=== PATIENT | male | born 1985 | race Caucasian/White ===

== ENCOUNTER 2019-07-26 16:44 | Inpatient (IN) | payer MEDICAID, OTHER ==
[~2019-07-26] VITALS: Ht 172.7 cm; Wt 79.6 kg
[2019-07-26] MEDS ORDERED: SERT-138 PO (17:12)
[2019-07-26] MEDS ORDERED: OMEP-218 PO ×2 (17:12→22:50)
[2019-07-26] MEDS ORDERED: SUBO8MIS SL ×2 (17:12→22:50)
[2019-07-26] MEDS ORDERED: LISI10TA15 PO ×2 (17:22→22:50)
[2019-07-26 18:02] LABS: HEMATOCRIT 47.5 % (42.0-52.0); HEMOGLOBIN 15.8 g/dl (13.5-17.5); MEAN CORPUSCULAR HEMOGLOBIN 31.1 pg (27.0-33.0); MEAN CORPUSCULAR HGB CONC 33.3 g/dl (32.0-36.5); MEAN CORPUSCULAR VOLUME 93.5 fl (80.0-96.0); PLATELET COUNT, AUTOMATED 274 10^3/uL (150-450); RED BLOOD COUNT 5.08 10^6/uL (4.30-6.10); WHITE BLOOD COUNT 10.8 10^3/uL (4.0-10.0)
[2019-07-26 18:27] LABS: AMPHETAMINES LEVEL URINE NEGATIVE (NEGATIVE); BARBITURATES URINE NEGATIVE (NEGATIVE); BENZODIAZEPINES URINE NEGATIVE (NEGATIVE); CANNABINOIDS URINE POSITIVE (NEGATIVE); COCAINE METABOLITE URINE NEGATIVE (NEGATIVE); METHADONE URINE NEGATIVE (NEGATIVE); OPIATES URINE NEGATIVE (NEGATIVE); PHENCYCLIDINE URINE NEGATIVE (NEGATIVE)
[2019-07-26 18:36] LABS: ACETAMINOPHEN LEVEL < 2.0 UG/ML (10.0-30.0); ALBUMIN 3.8 GM/DL (3.2-5.2); ALT/SGPT 38 U/L (12-78); BILIRUBIN,DIRECT < 0.1 MG/DL (0.0-0.2); BILIRUBIN,TOTAL 0.2 MG/DL (0.2-1.0); BLOOD UREA NITROGEN 9 MG/DL (7-18); CALCIUM LEVEL 9.2 MG/DL (8.5-10.1); CARBON DIOXIDE LEVEL 31 MEQ/L (21-32); CHLORIDE LEVEL 106 MEQ/L (98-107); CREATININE FOR GFR 0.96 MG/DL (0.70-1.30); ETHYL ALCOHOL (ETHANOL) < 0.003 % (0.000-0.010); GLOMERULAR FILTRATION RATE > 60.0 (>60); GLUCOSE, FASTING 103 MG/DL (70-100); POTASSIUM SERUM 4.8 MEQ/L (3.5-5.1); SALICYLATE LEVEL 2.7 MG/DL (5.0-30.0); SODIUM LEVEL 141 MEQ/L (136-145); THYROID STIMULATING HORMONE 0.426 uIU/ML (0.358-3.740); TOTAL PROTEIN 7.5 GM/DL (6.4-8.2)
[2019-07-26] MEDS ORDERED: MAALOX 30 ML SUSP *UDC PO PRN (22:00)
[2019-07-26] MEDS ORDERED: ACETAMINOPHEN TAB 650MG DOSE (2X325MG) PO PRN (22:00)
[2019-07-26] MEDS ORDERED: MOM 30ML SUSPENSION UDC PO PRN (22:00)
[2019-07-26] MEDS ORDERED: NICOTINE 21MG/24HR 1 EA TRANSDERMAL TD STA (22:26)
[2019-07-26] MEDS ORDERED: VENL75CA47 PO (22:50)
[2019-07-26] MEDS ORDERED: NARC1SPR (22:54)
[2019-07-26] MEDS ORDERED: ALEV220T22 PO (22:54)
[2019-07-26 23:19] VITALS: BP 135/82
[2019-07-26] MEDS: traZODone 50 MG TAB PO PRN (23:58)
[2019-07-27 06:52] VITALS: BP 124/84
--- NOTE | 2019-07-27 09:17 | MHHPEPDOC ---
[facility] History & Physical History and Physical DATE OF ADMISSION: Jul 26, 2019 at 22:00 New Patient Maxwell Castellanos MRN: N/A Date of : N/A Date of Service: 07/27/2019 Chief Complaint "I had a moment." History of Present Illness Patient is a 34-year-old man with a history of PTSD who presents after reportedly getting suicidal thoughts for short period that were primarily hopelessness. When further asked and described, the patient reports that he was under much stress with multiple financial stressors and his having addiction. When I met with the patient, he reported that having good sleep and being restarted on his venlafaxine that he had felt was very helpful, he was feeling much improved. The patient states that he had had multiple stressors and that being from them had helped him greatly. He reports that his initial depressed mood, irritability and insomnia that were present have resolved. The patient reports having a history of PTSD with combat and subsequent avoidance, hypervigilance and negative cognition about the future. He reports he has recently moved up from [place] and that he has been without his medications. He has been attempting to get medications through [facility] and has been in the Suboxone outpatient program. Review Of Systems Depression: As above. Anxiety: Trauma related stressors and situational increased anxiety. Radha: The patient denies any episodes of euphoria/dysphoria associated with decreased need for sleep, hedonism, talkatively or impulsivity lasting longer than 5 days. Psychotic: The patient denies any experiences of auditory or visual hallucinations. They deny any episodes of paranoia or delusional thinking in the past Trauma: As above. Borderline: The patient screens negative for borderline personality at this junction. Past Psychiatric History The patient reports having diagnosis of PTSD, currently on venlafaxine, previously on sertraline, has had outpatient in [place], reports having 1 admission in the past. Denies any suicidal thoughts. Allergies Please see below. Family Psychiatric History The patient denies any history of mental health diagnoses, addictions or suicide in the family. Social History The patient lives in the local area. He is to his spouse, has 2 children, subsists on [employer] disability for PTSD, has had a DUI in the past, grew up in a family with an estranged relationship to his father who he has no contact with. He has good relationship with mother, served in the [employer] for 4 years and was honorably discharged. Substance Abuse History The patient reports having an opioid dependence history, tobacco use and currently follows at outpatient addiction in [place]. Medical History Has a history of hypertension. Mental Status Examination General: Well dressed with good hygiene Speech: Spontaneous and fluid Thought processes: Linear and logical MSK: Smooth and coordinated gait, no signs of tremors or involuntary orofacial movements Thought content: Future orientated Abstract reasoning, and computation: Intact Description of associations: Intact Description of abnormal or psychotic thoughts: Denies any suicidal or homicidal ideation. Denies any auditory or visual hallucinations. Does not appear to be r esponding to internal stimuli. Does not appear to be endorsing any bizarre or paranoid ideation. Judgment: fair Insight: fair Orientation: Alert and orientated 3 Cognition: Grossly normal Recent and remote memory: Intact Attention span and concentration: Intact Fund of knowledge: Adequate Mood: "okay" Affect: Euthymic with a full range Diagnoses Adjustment disorder, mild. PTSD, chronic. Opioid use disorder, on maintenance treatment. Tobacco use disorder, severe. Assessment and Plan PTSD: We'll restart home medications. Opioid use disorder: Restart home medications. Disposition Discharge tomorrow. Does not meet involuntary criteria for extension of his admission past 48 hours. Problem List 1. Risk for suicide. 2. Depression. 3. Ineffective coping. Initial Treatment Plan 1. Patient was admitted on a 9.39 legal status. 2. Complete history was obtained. 3. With patients permission, family will be contacted and database will be expanded. 4. Patients medication regimen will be reviewed and changed accordingly. 5. Patient will be provided with protected environment. 6. Patient will be treated with individual, group, and milieu therapies. 7. Patient will receive supportive psych-education. 8. Discharge planning will commence immediately. 9. Outpatient follow-up treatment will be strongly recommended. 10. The initial treatment plan will focus initially on: Estimated Length Of Stay 2 days. Time Spent 70 minutes. Vital Signs Vital Signs Date Time Temp Pulse Resp B/P (MAP) Pulse Ox O2 Delivery O2 Flow Rate FiO2 07/27/19 06:52 98.5 77 12 124/84 (97) Room Air 07/26/19 18:48 100 Laboratory Data 24H Labs Laboratory Tests 2 07/26/19 17:41: Nucleated Red Blood Cells % (auto) 0.0, Anion Gap 4L, Glomerular Filtration Rate > 60.0, Calcium Level 9.2, Total Bilirubin 0.2, Direct Bilirubin < 0.1, Aspartate Amino Transf (AST/SGOT) 20, Alanine Aminotransferase (ALT/SGPT) 38, Alkaline Phosphatase 85, Total Protein 7.5, Albumin 3.8, Albumin/Globulin Ratio 1.03, Thyroid Stimulating Hormone (TSH) 0.426, Salicylates Level 2.7L, Urine O piates Screen NEGATIVE, Urine Methadone Screen NEGATIVE, Acetaminophen Level < 2.0L, Urine Barbiturates Screen NEGATIVE, Urine Phencyclidine Screen NEGATIVE, Urine Amphetamines Screen NEGATIVE, Urine Benzodiazepines Screen NEGATIVE, Urine Cocaine Metabolite Screen NEGATIVE, Urine Cannabinoids Screen POSITIVEH, Ethyl Alcohol Level < 0.003 CBC/BMP Laboratory Tests 07/26/19 17:41 Medications Scheduled Buprenorphine HCl/Naloxone HCl (Suboxone 8 mg-2 mg Sl Film) 1 Each Film, 1 STRIP SL BID for . Lisinopril/Hydrochlorothiazide (Lisinopril-Hctz 10-12.5 mg Tab) 1 Each Tablet, 1 TAB PO DAILY for . Omeprazole (Omeprazole) 20 Mg Capsule.dr, 20 MG PO DAILY, (Reported) Trazodone HCl (Trazodone HCl) 50 Mg Tablet, 1 TAB PO QPM for sleep Venlafaxine HCl (Venlafaxine HCl ER) 75 Mg Cap.er.24h, 75 MG PO DAILY for mood Scheduled PRN Naloxone HCl (Narcan) 4 Mg [place], 4 MG NA ASDIRECTED PRN for OVERDOSE, (Reporte d) Naproxen Sodium (Aleve) 220 Mg Tablet, 440 MG PO BID PRN for PAIN, (Reported) Allergies Coded Allergies: No Known Allergies (Verified Allergy, Unknown, 07/26/19) TY MERINO DO Jul 27, 2019 09:17
[2019-07-27] MEDS: NICOTINE 21MG/24HR 1 EA TRANSDERMAL TD SCH (10:21)
[2019-07-27] MEDS: VENLAFAXINE **XR** 75MG CAPSULE PO SCH (10:21)
[2019-07-27] MEDS: BUPRENORPHINE/NALOXONE 8-2MG SUBLINGUAL TABLET(SUBOXONE) SL SCH ×2 (15:20→20:39)
[2019-07-27 17:48] VITALS: BP 158/84
[2019-07-27 18:00] VITALS: BP 140/100
--- NOTE | 2019-07-27 18:13 | HPE ---
DATE OF ADMISSION: 07/26/2019 The patient is admitted to the inpatient mental health unit due to depression. HISTORY OF PRESENT ILLNESS: This a 34-year-old male with history of polysubstance abuse, undergoing Suboxone detoxification, active tobacco use. He denies any medical complaints aside from withdrawal symptoms which is occasional nausea, generalized malaise and aches, and occasional chills. No fever, dysuria, urgency, frequency, chest pain, pressure or tightness, shortness of breath, palpitations, lightheadedness, dizziness, upper or lower extremity weakness, gait ataxia, changes in vision, changes in appetite, insomnia, hypersomnia. PAST MEDICAL HISTORY: Suboxone detoxification, osteoarthritis. PAST SURGICAL HISTORY: Left knee arthroscopy. ALLERGIES: No known drug allergies. HOSPITAL MEDICATIONS: - acetaminophen 650 as needed for headache - Mylanta 30 mL every four hours as needed for heartburn - Suboxone one tablet sublingually twice a day - flu shot - milk of magnesia 30 mL daily as needed for constipation - nicotine patch 21 mg daily - trazodone 50 mg at bedtime as needed for insomnia - Effexor 75 mg daily SOCIAL HISTORY: The patient smokes a pack a day since age of 16. No alcohol use. Recreational drug use with opiates. 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 FAMILY HISTORY: Father and mother alive, unknown medical problems. One sister and one brother alive and well. PHYSICAL EXAMINATION: Temperature 98.5, pulse 77, respiratory rate 21, blood pressure 124/84, 100% on room air. GENERAL: Awake, alert, oriented to person, place and time. Anicteric sclerae. No jaundice. No icterus. Moist mucous membranes. Lungs are clear to auscultation. No wheezing, rales, or rhonchi. HEART: S1, S2, sinus rhythm. Abdomen is soft, nontender, nondistended. EXTREMITIES: No clubbing, cyanosis, or any pitting edema. LABORATORY DATA: White count 10, hemoglobin 15, hematocrit 47, platelet count 274. Sodium 141, potassium 4.8, chloride 106, bicarbonate 31, BUN 9, creatinine 0.96, glucose 103, calcium 9.2, total bilirubin 0.2, direct bilirubin less than 0.1, AST 20, ALT 38, alkaline phosphatase 85, total protein 7.5, albumin 3.8, TSH 0.426. Toxicology screen positive for cannabinoids. ASSESSMENT AND PLAN: This is a 34-year-old male with history of polysubstance abuse, positive marijuana, recreational drug use with opiates, active smoking, admitted to the inpatient mental health unit, currently on Suboxone detoxification. IMPRESSION: 1. Depression, managed by psychiatrist. Continue all recommended medications. 2. History of osteoarthritis with left knee arthroscopy. No acute complaints. 3. Diet. Regular diet. 4. Deep vein thrombosis (DVT) prophylaxis. Encourage ambulation. MTDD
[2019-07-27] MEDS: traZODone 50 MG TAB PO PRN (21:55)
[2019-07-28 06:22] VITALS: BP 119/65
[2019-07-28] MEDS: NICOTINE 21MG/24HR 1 EA TRANSDERMAL TD SCH (08:09)
[2019-07-28] MEDS: VENLAFAXINE **XR** 75MG CAPSULE PO SCH (08:09)
[2019-07-28] MEDS: BUPRENORPHINE/NALOXONE 8-2MG SUBLINGUAL TABLET(SUBOXONE) SL SCH (08:09)
[2019-07-28] MEDS ORDERED: INFLUENZA QUADRIVALENT PF VACCINE 0.5ML SYRINGE (90686) IM ONE (09:00)
[2019-07-28] MEDS ORDERED: LISI10TA15 PO (09:31)
[2019-07-28] MEDS ORDERED: VENL75CA47 PO (09:31)
[2019-07-28] MEDS ORDERED: SUBO8MIS SL (09:31)
--- NOTE | 2019-07-28 10:46 | MHDSPDOC ---
[facility] Discharge Summary Discharge Summary DATE OF ADMISSION: Jul 26, 2019 at 22:00 DATE OF DISCHARGE: 07/28/19 Discharge Maxwell Castellanos MRN: N/A Date of : N/A Date of Service: 07/28/2019 Diagnoses Adjustment disorder, mild. PTSD, chronic. Opioid use disorder, on maintenance treatment. Tobacco use disorder, severe. History of Present Illness Patient is a 34-year-old man with a history of PTSD who presents after reportedly getting suicidal thoughts for short period that were primarily hopelessness. When further asked and described, the patient reports that he was under much stress with multiple financial stressors and his having addiction. When I met with the patient, he reported that having good sleep and being restarted on his venlafaxine that he had felt was very helpful, he was feeling much improved. The patient states that he had had multiple stressors and that being from them had helped him greatly. He reports that his initial depressed mood, irritability and insomnia that were present have resolved. The patient reports having a history of PTSD with combat and subsequent avoidance, hypervigilance and negative cognition about the future. He reports he has recently moved up from [place] and that he has been without his medications. He has been attempting to get medications through [facility] and has been in the Suboxone outpatient program. Consultants Involved Hospitalist/PCP screening Treatment and Progress On The Unit Patient was admitted to the inpatient unit, restarted on his home medications with positive results. There was primarily adjustment reaction as his symptoms of stress induced insomnia, low mood and hopelessness have resolved, his suicidal ideation resolved shortly after his arrival to the hospital. The patient did well without much intervention. The patient resolved and requested discharge. At 48 hours, he did not meet involuntary criteria for extension of his admission in my clinical judgment as he is denying suicidal or homicidal ideation with a normal mental status, good insight, cooperated well with his discharge and was future orientated. He was not significantly impaired by his PTSD so much so that he could be further held involuntarily and declined further voluntary admission and thus was discharged in good leoncio with supplies of his medications until he can find a local provider in order to continue them. Discharge Assessment A 34-year-old man with a history of PTSD who likely presents in an adjustment reaction, well known to happen in individuals with PTSD, stress levels can rise quickly and the individuals become hopeless, insomniac and depressed, however, once they are extricated from these situations much as this patient was they resolve quickly. He was restarted on his home medications with good results. Mental Status Examination General: Well dressed with good hygiene Speech: Spontaneous and fluid Thought processes: Linear and logical MSK: Smooth and coordinated gait, no signs of tremors or involuntary orofacial movements Thought content: Future orientated Abstract reasoning, and computation: Intact Description of associations: Intact Description of abnormal or psychotic thoughts: Denies any suicidal or homicidal ideation. Denies any auditory or visual hallucinations. Does not appear to be responding to internal stimuli. Does not appear to be endorsing any bizarre or paranoid ideation. Judgment: fair Insight: fair Orientation: Alert and orientated 3 Cognition: Grossly normal Recent and remote memory: Intact Attention span and concentration: Intact Fund of knowledge: Adequate Mood: "okay" Affect: Euthymic with a full range Follow Up The social work team worked during the predischarge meeting in order to evaluate for further issues of lethality address them fully before discharge. They worked on safety planning with the patient's family members in order to ensure that the patient will have a safe and effective discharge. Time Spent The amount of time spent in the coordination of care for this patient was approximately 60 minutes. Vital Signs/I&Os Vital Signs Date Time Temp Pulse Resp B/P (MAP) Pulse Ox O2 Delivery O2 Flow Rate FiO2 07/28/19 06:22 98.2 65 18 119/65 (83) 07/27/19 06:52 Room Air 07/26/19 18:48 100 Medications Scheduled Buprenorphine HCl/Naloxone HCl (Suboxone 8 mg-2 mg Sl Film) 1 Each Film, 1 STRIP SL BID for . for 3 Days, #6 Lisinopril/Hydrochlorothiazide (Lisinopril-Hctz 10-12.5 mg Tab) 1 Each Tablet, 1 TAB PO DAILY for . for 7 Days, #7 Omeprazole (Omeprazole) 20 Mg Capsule.dr, 20 MG PO DAILY, (Reported) Trazodone HCl (Trazodone HCl) 50 Mg Tablet, 1 TAB PO QPM for sleep for 7 Days, #7 Venlafaxine HCl (Venlafaxine HCl ER) 75 Mg Cap.er.24h, 75 MG PO DAILY for mood for 7 Days, #7 Scheduled PRN Naloxone HCl (Narcan) 4 Mg [place], 4 MG NA ASDIRECTED PRN for OVERDOSE, (Reported) Naproxen Sodium (Aleve) 220 Mg Tablet, 440 MG PO BID PRN for PAIN, (Reported) Allergies Coded Allergies: No Known Allergies (Verified Allergy, Unknown, 07/26/19) TY MERINO DO Jul 28, 2019 10:46
[2019-07-28] MEDS ORDERED: TRAZ-252 PO (13:22)
== END 2019-07-28 11:00 | disposition home or self-care (01) | DRG 755 ==
LOC: M ED 16:44 → M ED INP 22:00 → M PSY 23:14
PROVIDERS: ADMIT Psychiatry & Neurology Psychiatry; ATTEND Psychiatry & Neurology Addiction Medicine
DX: F43.20 Adjustment disorder, unspecified (principal); F43.10 Post-traumatic stress disorder, unspecified; I10 Essential (primary) hypertension; F11.20 Opioid dependence, uncomplicated; F17.210 Nicotine dependence, cigarettes, uncomplicated; M19.90 Unspecified osteoarthritis, unspecified site; F32.9 Major depressive disorder, single episode, unspecified; Z79.899 Other long term (current) drug therapy; Z96.652 Presence of left artificial knee joint; Z91.82 Personal history of military deployment; Z63.0 Problems in relationship with spouse or partner

== ENCOUNTER 2019-08-26 13:13 | Emergency (ER) | payer MEDICAID ==
[~2019-08-26] VITALS: Ht 175.3 cm; Wt 81.8 kg
[~2019-08-26 13:13] MED LIST: ALEV220T22 PO; LISI10TA15 PO; NARC1SPR; OMEP-218 PO; SERT-138 PO; SUBO8MIS SL; TRAZ-252 PO; VENL75CA47 PO
[2019-08-26 14:15] LABS: MEAN CORPUSCULAR HEMOGLOBIN 30.4 pg (27.0-33.0); MEAN CORPUSCULAR HGB CONC 33.3 g/dl (32.0-36.5); MEAN CORPUSCULAR VOLUME 91.4 fl (80.0-96.0); PLATELET COUNT, AUTOMATED 271 10^3/uL (150-450); RED BLOOD COUNT 6.02 10^6/uL (4.30-6.10)
[2019-08-26 14:16] LABS: HEMOGLOBIN 18.3 g/dl (13.5-17.5)
[2019-08-26 14:40] LABS: AMPHETAMINES LEVEL URINE POSITIVE (NEGATIVE); BARBITURATES URINE NEGATIVE (NEGATIVE); BENZODIAZEPINES URINE NEGATIVE (NEGATIVE); CANNABINOIDS URINE POSITIVE (NEGATIVE); COCAINE METABOLITE URINE NEGATIVE (NEGATIVE); METHADONE URINE NEGATIVE (NEGATIVE); OPIATES URINE NEGATIVE (NEGATIVE); PHENCYCLIDINE URINE NEGATIVE (NEGATIVE)
[2019-08-26 14:46] LABS: ACETAMINOPHEN LEVEL < 2.0 UG/ML (10.0-30.0); ALBUMIN 4.1 GM/DL (3.2-5.2); ALT/SGPT 29 U/L (12-78); BILIRUBIN,DIRECT < 0.1 MG/DL (0.0-0.2); BILIRUBIN,TOTAL 0.3 MG/DL (0.2-1.0); BLOOD UREA NITROGEN 7 MG/DL (7-18); CALCIUM LEVEL 9.1 MG/DL (8.5-10.1); CARBON DIOXIDE LEVEL 26 MEQ/L (21-32); CHLORIDE LEVEL 107 MEQ/L (98-107); CREATININE FOR GFR 0.97 MG/DL (0.70-1.30); ETHYL ALCOHOL (ETHANOL) < 0.003 % (0.000-0.010); GLOMERULAR FILTRATION RATE > 60.0 (>60); GLUCOSE, FASTING 93 MG/DL (70-100); POTASSIUM SERUM 4.2 MEQ/L (3.5-5.1); SALICYLATE LEVEL < 1.7 MG/DL (5.0-30.0); SODIUM LEVEL 140 MEQ/L (136-145); THYROID STIMULATING HORMONE 0.903 uIU/ML (0.358-3.740); TOTAL PROTEIN 7.9 GM/DL (6.4-8.2)
[2019-08-26] MEDS ORDERED: ONDANSETRON 4 MG ORAL DISINTEGRATING TAB (Q0162 PER 1MG) PO ONE (16:30)
--- NOTE | 2019-08-26 19:08 | ECGEPIP ---
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
[2019-08-26] MEDS ORDERED: METAL LOCK LOOP XX ONE (19:25)
[2019-08-26] MEDS ORDERED: traZODone 50 MG TAB PO ONE (20:15)
[2019-08-26 21:32] VITALS: BP 140/74
== END 2019-08-26 21:34 ==
LOC: M ED 13:13
DX: R45.851 Suicidal ideations (principal); F43.10 Post-traumatic stress disorder, unspecified; F43.20 Adjustment disorder, unspecified; M19.90 Unspecified osteoarthritis, unspecified site; F11.20 Opioid dependence, uncomplicated; Z79.899 Other long term (current) drug therapy; F17.210 Nicotine dependence, cigarettes, uncomplicated
CPT/HCPCS: 36415; 80048; 80076; 80307; 84443; 85027; 93005; 99285; G0480; Q0162

== ENCOUNTER 2021-03-02 14:09 | Emergency (ER) | payer OTHER ==
[~2021-03-02] VITALS: Ht 172.7 cm; Wt 72.7 kg
--- NOTE | 2021-03-02 16:53 | REP ---
INDICATION: pain COMPARISON: None. TECHNIQUE: Three limited views of the right shoulder. FINDINGS: No acute fracture or dislocation. The acromioclavicular and glenohumeral joints are intact. No periarticular calcifications or degenerative changes are appreciated. Sub acromial space is normal. Surrounding soft tissues are unremarkable. IMPRESSION: No obvious acute fracture or dislocation. No obvious degenerative changes. <Electronically signed by Deondre Nuñez > 03/02/21 0133
--- NOTE | 2021-03-02 16:54 | REP ---
INDICATION: pain COMPARISON: None. TECHNIQUE: AP, lateral, bilateral oblique views right foot. FINDINGS: The osseous structures and joint spaces are intact and normal. There is no evidence for acute fracture or dislocation. Surrounding soft tissues are unremarkable. No subcutaneous emphysema or radiodense foreign body. IMPRESSION: Age-appropriate right foot radiographs. No acute fracture or dislocation. <Electronically signed by Deondre Nuñez > 03/02/21 [id number]
[2021-03-02] MEDS ORDERED: ACETAMINOPHEN 500 MG TAB PO ONE (18:55)
[2021-03-02 20:12] LABS: BLOOD UREA NITROGEN 24 MG/DL (7-18); CARBON DIOXIDE LEVEL 25 MEQ/L (21-32); CHLORIDE LEVEL 91 MEQ/L (98-107); CREATININE FOR GFR 0.89 MG/DL (0.70-1.30); GLOMERULAR FILTRATION RATE > 60.0 (>60); GLUCOSE, FASTING 109 MG/DL (70-100); POTASSIUM SERUM 3.7 MEQ/L (3.5-5.1); SODIUM LEVEL 128 MEQ/L (136-145)
[2021-03-02] MEDS ORDERED: MORPHINE 2 MG/ML 1ML VIAL (J2270) IM ONE (20:20)
[2021-03-02] MEDS ORDERED: NS 1,000 ML IV ONE (20:20)
[2021-03-02] MEDS ORDERED: VANCOMYCIN HCL 1,500 MG in NS 250 ML IV ONE (20:20)
[2021-03-02 20:25] LABS: HEMATOCRIT 46.8 % (42.0-52.0); HEMOGLOBIN 15.7 g/dl (13.5-17.5); MEAN CORPUSCULAR HEMOGLOBIN 28.6 pg (27.0-33.0); MEAN CORPUSCULAR HGB CONC 33.5 g/dl (32.0-36.5); MEAN CORPUSCULAR VOLUME 85.4 fl (80.0-96.0); RED BLOOD COUNT 5.48 10^6/uL (4.30-6.10); WHITE BLOOD COUNT 16.8 10^3/uL (4.0-10.0)
[2021-03-02] MEDS ORDERED: VANCOMYCIN HCL 750 MG, VIAL MATE ADAPTER 1 EACH in NS 250 ML IV ONE ×2 (20:30→21:30)
[2021-03-02 20:32] LABS: LYMPHOCYTES 10 % (16-44); MONOCYTES 4 % (0-5); NEUTROPHILS 83 % (28-66); PLATELET CLUMPS LARGE AMT; PLATELET ESTIMATE INVALID (NORMAL)
--- NOTE | 2021-03-02 21:21 | ECGEPIP ---
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
[2021-03-02 22:15] LABS: RSV AMPLIFICATION NEGATIVE (NEGATIVE)
--- NOTE | 2021-03-02 23:16 | REPVR ---
PROCEDURE INFORMATION: Exam: XR Chest Exam date and time: 03/02/2021 9:58 PM Age: 35 years old Clinical indication: Fever; Additional info: Chest pain, fever, lactic acidosis TECHNIQUE: Imaging protocol: XR of the chest. Views: 1 view. COMPARISON: CR Shoulder, complete 03/02/2021 4:13 PM FINDINGS: Lungs: There is decreased inflation of the lungs. No focal infiltrates. Pleural spaces: Unremarkable. No pleural effusion. No pneumothorax. Heart/Mediastinum: Unremarkable. No cardiomegaly. Bones/joints: Unremarkable. IMPRESSION: Negative poor inspiratory chest. Electronically signed by: Sergei Mishra On 03/02/2021 23:15:50 PM
[2021-03-03] MEDS ORDERED: ACETAMINOPHEN 325 MG TAB PO ONE (03:15)
--- NOTE | 2021-03-03 04:32 | REPVR ---
PROCEDURE INFORMATION: Exam: MR Lumbar Spine Without Contrast Exam date and time: 03/03/2021 2:15 AM Age: 35 years old Clinical indication: Low back pain and other: Lt hip pain; Patient HX: HX of iv drug use, PT states pain everywhere most concentrated in the left lower back area; Additional info: R/O epidural abscess TECHNIQUE: Imaging protocol: Multiplanar magnetic resonance images of the lumbar spine without intravenous contrast. COMPARISON: No relevant prior studies available. FINDINGS: Limitations: There is motion artifact. Vertebrae: There is normal alignment of the visualized spine. Spinal epidural space: No epidural collections are identified. Spinal cord: The conus medullaris terminates at the L1 level. The distal cord appears unremarkable. T12-L1: Imaged on the sagittal images only. Unremarkable. L1-L2: There is no disc bulge or herniation. The facet joints appear normal. No central or foraminal narrowing. L2-L3: There is no disc bulge or herniation. The facet joints appear normal. No central or foraminal narrowing. L3-L4: There is no disc bulge or herniation. There is mild hypertrophy of the facet joints. No central or foraminal narrowing. L4-L5: The disc is desiccated and narrowed. There is diffuse disc bulge and a central to left paracentral disc protrusion associated with peripheral high signal in the disc, indicating an annular tear. There is mild hypertrophy of the ligamentum flavum and of the facet joints. There is moderate central canal stenosis and mild bilateral neural foraminal narrowing. L5-S1: The disc is desiccated and narrowed. There is a small diffuse bulge of the disc and a small, broad-based left subarticular to foraminal disc protrusion, associated with peripheral high signal in the disc, indicating an annular tear. The facet joints appear unremarkable. There is mild central canal stenosis. The right neural foramen is patent. There is moderate left neural foraminal narrowing. Soft tissues: There is hyperintense signal on the T2 and STIR images in the left paraspinous musculature, extending from at least T12 through S1, and similar right-sided paraspinous muscular edema at L4 and L5. There is no evidence of focal fluid collections to suggest abscess formation. IMPRESSION: 1. No epidural abscess identified. 2. Degenerative disc disease at L4-L5 and L5-S1 with disc narrowing and desiccation at both levels. A central to left paracentral disc protrusion and annular tear at L4-L5 results in moderate central canal stenosis and mild bilateral neural foraminal narrowing. A left subarticular to foraminal disc protrusion at L5-S1 results in mild central canal stenosis and moderate left neural foraminal narrowing. 3. Edema within the paraspinous musculature extending over a broad area on the left side and in the lower lumbar spine on the right side, of uncertain etiology. Consider posttraumatic muscle strain, an infectious/inflammatory myositis, or denervation. Electronically signed by: Charlene Castro On 03/03/2021 04:32:07 AM
--- NOTE | 2021-03-03 04:46 | REPVR ---
PROCEDURE INFORMATION: Exam: MR Thoracic Spine Without Contrast Exam date and time: 03/03/2021 2:15 AM Age: 35 years old Clinical indication: Other: R/O epidural abscess TECHNIQUE: Imaging protocol: Multiplanar magnetic resonance images of the thoracic spine without contrast. COMPARISON: CR Chest, 1 view 03/02/2021 9:50 PM FINDINGS: Limitations: There is motion artifact. Vertebrae: Vertebral body heights are normal. Schmorl's nodes are seen at several levels, including the superior endplate of T6 and the inferior endplates T7 through T10. There are anterior endplate spurs and mild signal changes at T4-T5 which appear degenerative, are hyperintense on both T1 and T2. Epidural space: There is no evidence of epidural collection or hemorrhage. Spinal cord: The visualized spinal cord is normal in signal and morphology. Discs/Spinal canal/Neural foramina: The T5-T6 disc appears desiccated and narrowed. There are small anterior endplate spurs. Peripheral high signal and a small disc protrusion are seen to the right of midline posteriorly at T5-T6, visualized on the sagittal sequences, but not well seen on the axial sequences. The T6-T7 disc is desiccated and narrowed. There is a right paracentral disc protrusion or disc osteophyte complex which contacts the cord but does not result in significant stenosis of the spinal canal. The T8-T9 disc is mildly desiccated and mildly narrowed. There is a minimal posterior disc osteophyte complex at T8-T9, not resulting in significant central or foraminal stenosis. The neural foramen are patent at each level. Soft tissues: Left paraspinous muscular edema is noted at the T12 level and extending into the visualized upper lumbar region. IMPRESSION: 1. Unremarkable appearance of the thoracic spinal cord. No epidural collections identified. 2. Mild, multilevel degenerative disc disease. No significant spinal canal stenosis. 3. Left paraspinous muscular edema at T12 and extending into the upper lumbar spine. Please see the report for the MRI of the lumbar spine. Electronically signed by: Charlene Castro On 03/03/2021 04:45:20 AM
--- NOTE | 2021-03-03 05:11 | REPVR ---
PROCEDURE INFORMATION: Exam: MR Cervical Spine Without Contrast Exam date and time: 03/03/2021 2:15 AM Age: 35 years old Clinical indication: Other: R/O epidural abscess TECHNIQUE: Imaging protocol: Multiplanar magnetic resonance images of the cervical spine without contrast. COMPARISON: CR Chest, 1 view 03/02/2021 9:50 PM FINDINGS: Limitations: There is significant motion artifact. The technologist notes the patient was agitated and further imaging was not possible. Vertebrae: There is loss of the cervical lordosis with a mild kyphosis from C3 through C5 without subluxations. There are anterior endplate spurs and are mild signal changes associated with the endplates from C3 through C7. Spinal cord: The cervical spinal cord is grossly normal in signal. Epidural space: No epidural collections are identified. Discs/Spinal canal/Neural foramina: There is no fluid signal associated with the discs. There are small posterior disc osteophyte complexes at C4-C5 through C6-C7. There is uncovertebral ridging at C3-C4, more prominent to the left side, which results in left-sided neural foraminal narrowing. There is mild stenosis of the spinal canal C3-C4 through C7. Vasculature: Expected flow voids in the vertebral arteries. Soft tissues: There is retropharyngeal/prevertebral complex fluid extending from C2 through T1, and associated swelling which is maximal in the midline at C4 and C5 and extends to the left of midline at C6 and C7. IMPRESSION: 1. There is a broad area of prevertebral swelling and fluid, suspicious for a retropharyngeal/prevertebral abscess. There is no definite involvement of the cervical discs, but the assessment is limited by significant motion artifact and the lack of IV contrast. As the technologist notes the patient was agitated and was not able to tolerate further image, a CT scan of the neck with contrast or a repeat MRI of the cervical spine with sedation and including images with and without contrast is recommended for further evaluation. 2. No epidural collections identified. 3. Multilevel degenerative disc disease with mild stenosis of the spinal canal from C3-C4 through C6-C7. Electronically signed by: Charlene Castro On 03/03/2021 05:11:04 AM
[2021-03-03] MEDS ORDERED: ISOVUE-370 76% 100ML VIAL As Ordered ONE (05:53)
[2021-03-03] MEDS ORDERED: KETOROLAC 30 MG/ML 1ML VIAL IV ONE (07:05)
[2021-03-03] MEDS ORDERED: MORPHINE 15 MG SA TAB PO ONE (07:05)
--- NOTE | 2021-03-03 07:11 | CR.PDOC ---
General Date of Consultation: Mar 03, 2021 Consultation This note is for documentation purposes only. No billing was performed. Patient was seen at bedside at 23:15 on 03/02/21. 35 yo M with hx of IVDU (heroin), chronic back pain, depression, presents to the ER with a 4 day history of generalized myalgia, chills, subjective fevers, neck pain, back pain and diaphoresis with related R shoulder and R ankle pain, swelling and limited range of motion. He also complains of 9/10 low back pain and inability to walk. Upon presentation he was found to be febrile to 100.3, pulse 106, BP 146/81, 97% on RA. WBC 16.9. Hgb 15.7. LA 3.8. Na 128. K 3.7. CRP 15.3. Blood cultures were sent, and empiric vancomycin was given for sepsis with presumed infective endocarditis in the setting of IVDU. I discussed the exam with ER physician Dr. Arriola. Given sepsis in setting of IVDU, c/o low back pain, neck pain and inability to ambulate, I recommended MRI with contrast imaging of the spine to r/o infectious process ie spinal abscess or discitis. MR studies wo contrast were ordered. MR C-spine showed a possible retropharyngeal/prevertebral abscess, CANNOT rule out vertebral involvement. I was called by radiologist Dr. Charlene Castro and was relayed these findings as well. She states that patient needs CT w IV contrast to r/o spinal involvement. Due to this reason, patient is not admitted to hospitalist service until triage is complete as patient may require transfer to higher level of care with neurosurgery/spinal surgery services. I conveyed this to Dr. Arriola. Vital Signs/I&O Vital Signs Date Time Temp Pulse Resp B/P (MAP) Pulse Ox O2 Delivery O2 Flow Rate FiO2 03/03/21 06:45 79 140/86 (104) 03/03/21 05:13 100.3 03/03/21 04:30 80 03/02/21 21:44 16 Room Air I&O- Last 24 Hours up to 6 AM 03/03/21 06:00 Intake Total 1550 ml Balance 1550 ml Laboratory Data Labs 24H Laboratory Tests 2 03/02/21 19:32: Neutrophils (%) (Auto) , Nucleated Red Blood Cells % (auto) 0.0, Neutrophils 83H, Band Neutrophils 3, Lymphocytes (Manual) 10L, Monocytes (Manual) 4, Red Blood Cell Morphology NORMAL, Platelet Estimate INVALID, Clumped Platelets LARGE AMT, Anion Gap 12, Glomerular Filtration Rate > 60.0, Lactic Acid Level 3.8*H, Calcium Level 8.0L, C-Reactive Protein, Quantitative 15.30H 03/02/21 20:35: Urine Color YELLOW, Urine Appearance CLEAR, Urine pH 6.0, Urine Specific [place] 1.013, Urine Protein 1+H, Urine Glucose (UA) NEGATIVE, Urine Ketones NEGATIVE, Urine Blood 2+H, Urine Nitrite NEGATIVE, Urine Bilirubin NEGATIVE, Urine Urobilinogen 0.2, Urine Leukocyte Esterase NEGATIVE, Urine WBC (Auto) 3, Urine RBC (Auto) 1, Urine Hyaline Casts (Auto) 0, Urine Bacteria (Auto) NEGATIVE, Urine Squamous Epithelial Cells 0, Urine Sperm (Auto) 03/02/21 21:27: Coronavirus (COVID-19)(PCR) NEGATIVE, Influenza Type A (RT-PCR) NEGATIVE, Influenza Type B (RT-PCR) NEGATIVE, Respiratory Syncytial Virus (PCR) NEGATIVE CBC/BMP Laboratory Tests 03/02/21 19:32 Microbiology Microbiology 03/02/21 Blood Culture, Received Pending 03/02/21 Blood Culture, Received Pending Allergies Coded Allergies: No Known Allergies (Verified Allergy, Unknown, 07/26/19) Home Medications Unable to Obtain Active Prescriptions or Reported Meds KORIN CORRIGAN MD Mar 03, 2021 07:11
--- NOTE | 2021-03-03 07:21 | REPVR ---
PROCEDURE INFORMATION: Exam: CT Neck With Contrast Exam date and time: 03/03/2021 6:33 AM Age: 35 years old Clinical indication: Other: R/O prevetebral abcess TECHNIQUE: Imaging protocol: Computed tomography images of the neck with contrast. Radiation optimization: All CT scans at this facility use at least one of these dose optimization techniques: automated exposure control; mA and/or kV adjustment per patient size (includes targeted exams where dose is matched to clinical indication); or iterative reconstruction. Contrast material: ISOVUE 370; Contrast volume: 75 ml; Contrast route: INTRAVENOUS (IV); COMPARISON: MRI-Spine,Cervical without con 03/03/2021 12:56 AM FINDINGS: Mastoid air cells: The mastoid air cells are clear. Paranasal sinuses: The visualized paranasal sinuses are clear. Nasopharynx: The nasopharynx appears unremarkable. Oropharynx: The oropharynx appears unremarkable. There is no enlargement of the tonsils. Hypopharynx: Unremarkable. Larynx: The larynx and epiglottis appear unremarkable. Retropharyngeal space: There is a peripherally enhancing, irregularly shaped collection which appears to be predominantly within the retropharyngeal space, from approximately the C3-C4 level through the T1 level. At its largest, the collection spans 4.8 cm transverse and 1.4 cm AP and approximately 6 cm craniocaudal. It is predominantly in the midline superiorly but extends toward the left side inferiorly, involving the superior mediastinum. There is a suggestion of involvement of the left prevertebral space in the lower cervical spine. There is thickening and diffuse infiltration of the retropharyngeal fat beginning at the level of the inferior oropharynx/hypopharynx and extending into the superior mediastinum. Submandibular/Parotid glands: The submandibular glands and the parotid glands are unremarkable and symmetric bilaterally. Thyroid: The thyroid gland is normal. Lymph nodes: No lymphadenopathy. Trachea: The trachea is normal. Lungs: The visualized lungs are grossly clear. Bones/joints: See Retropharyngeal space findings. There are endplate spurs at multiple levels in the cervical spine. There is an unfused apophysis at the C5-C6 level. No erosive changes of the bones are identified. Vasculature: The cervical carotid and vertebral arteries are patent. There is no definite tissue plane between the inflamed tissue and the left carotid space. On 1 axial image, there is a question of an irregularity of the posterior wall of the left common carotid artery (image 62 of series 201), and there is edema extending into the left carotid space on the prior MRI. Soft tissues: There is a focus of gas in the left lower cervical tissues, which is lateral to the collection and may be within a small vein, but it raises the possibility of infection with a gas producing organism (images 54-57 of series 201 and images 59-61 of series 203). IMPRESSION: 1. Peripherally enhancing fluid collection consistent with abscess which appears to be centered in the retropharyngeal space but extends into the superior mediastinum and may involve the left prevertebral space and the left carotid space. 2. An equivocal irregularity of the mid left common carotid artery which raises the possibility of infectious involvement of the wall of the carotid artery. No associated luminal narrowing is identified. 3. No epidural collections identified on this exam or on the prior MRI. 4. Small focus of gas within the soft tissues in the left lower neck, which is lateral to the above described process and may be incidental air within a small vein, but a small amount of gas related to a gas producing organism showed be considered. COMMENTS: THIS REPORT CONTAINS FINDINGS THAT MAY BE CRITICAL TO PATIENT CARE. The findings were verbally communicated via telephone conference with MARV CHOW at 7:15 AM EDT on 03/03/2021. The findings were acknowledged and understood. Electronically signed by: Charlene Castro On 03/03/2021 07:21:12 AM
[2021-03-03] MEDS ORDERED: PIPERACILLIN/TAZOBACTAM SOD 4.5 GM in D5W MINI-BAG PLUS 50 ML IV ONE (08:05)
[2021-03-03 09:57] VITALS: BP 119/62
== END 2021-03-03 10:00 | disposition short-term general hospital (02) ==
LOC: M ED 14:09
DX: L03.115 Cellulitis of right lower limb (principal); A41.9 Sepsis, unspecified organism; E87.1 Hypo-osmolality and hyponatremia; M25.511 Pain in right shoulder; F15.10 Other stimulant abuse, uncomplicated
CPT/HCPCS: 36415; 70491; 71045; 72141; 72146; 72148; 73030; 73630; 80048; 81001; 83605; 85025; 86140; 87040; 87077; 87186; 87631; 93005; 93041; 94760; 96361; 96365; 96366; 96367; 96368; 96372; 96375; 99285; J1885; J2270; J2543; J3370; Q9967

== ENCOUNTER 2021-03-18 21:27 | Emergency (ER) | payer OTHER ==
[~2021-03-18] VITALS: Ht 172.7 cm; Wt 63.6 kg
[2021-03-19 04:01] LABS: BASO # 0.1 10^3/uL (0.0-0.2); BASO % 0.5 % (0.0-1.0); EOS # 0.2 10^3/uL (0.0-0.5); EOS % 1.6 % (0.0-3.0); HEMATOCRIT 31.8 % (42.0-52.0); HEMOGLOBIN 9.9 g/dl (13.5-17.5); LYMPH # 3.4 10^3/uL (1.5-5.0); LYMPH % 32.9 % (24.0-44.0); MEAN CORPUSCULAR HEMOGLOBIN 27.7 pg (27.0-33.0); MEAN CORPUSCULAR HGB CONC 31.1 g/dl (32.0-36.5); MEAN CORPUSCULAR VOLUME 88.8 fl (80.0-96.0); MONO # 0.8 10^3/uL (0.0-0.8); NEUTROPHILS # 5.9 10^3/uL (1.5-8.5); NEUTROPHILS % 56.7 % (36.0-66.0); RED BLOOD COUNT 3.58 10^6/uL (4.30-6.10); WHITE BLOOD COUNT 10.3 10^3/uL (4.0-10.0)
[2021-03-19 04:20] LABS: BLOOD UREA NITROGEN 9 MG/DL (7-18); CARBON DIOXIDE LEVEL 30 MEQ/L (21-32); CHLORIDE LEVEL 102 MEQ/L (98-107); CK-MB VALUE MASS < 1.0 NG/ML (<3.6); CPK CREATINE PHOSPHOKINASE 25 U/L (39-308); CREATININE FOR GFR 0.67 MG/DL (0.70-1.30); GLOMERULAR FILTRATION RATE > 60.0 (>60); GLUCOSE, FASTING 104 MG/DL (70-100); POTASSIUM SERUM 4.8 MEQ/L (3.5-5.1); SODIUM LEVEL 139 MEQ/L (136-145); TROPONIN I < 0.02 NG/ML (< 0.10)
[2021-03-19] MEDS ORDERED: ISOVUE-370 76% 100ML VIAL As Ordered ONE (05:49)
--- NOTE | 2021-03-19 06:47 | REPVR ---
PROCEDURE INFORMATION: Exam: XR Chest Exam date and time: 03/19/2021 2:36 AM Age: 35 years old Clinical indication: Pain; Angina pectoris; Additional info: Chest pain TECHNIQUE: Imaging protocol: XR of the chest. Views: 1 view. COMPARISON: CR Chest, 1 view 03/02/2021 9:50 PM FINDINGS: Lungs: Unremarkable. No consolidation. Pleural spaces: Unremarkable. No pleural effusion. No pneumothorax. Heart/Mediastinum: Unremarkable. No cardiomegaly. Bones/joints: Unremarkable. IMPRESSION: No acute findings. Electronically signed by: Charlene Castro On 03/19/2021 06:47:17 AM
--- NOTE | 2021-03-19 06:57 | REPVR ---
PROCEDURE INFORMATION: Exam: US Duplex Upper Extremity Veins Exam date and time: 03/19/2021 4:36 AM Age: 35 years old Clinical indication: Pain; Arm, upper; Bilateral; Additional info: B/l arm pain, ? HX of dvt TECHNIQUE: Imaging protocol: Real-time Duplex ultrasound of the Upper Extremities with 2-D cervantes scale, color Doppler flow and spectral waveform analysis with image documentation. Complete exam focused on the bilateral upper extremity veins. COMPARISON: CR Shoulder, complete 03/02/2021 4:13 PM FINDINGS: Right deep veins: Unremarkable. Axillary and brachial veins are patent throughout without thrombus. Normal Doppler waveforms. Normal compressibility and/or augmentation response. Visualized internal jugular and subclavian veins are patent. Right superficial veins: Unremarkable. Visualized cephalic and basilic veins are patent without thrombus. Left deep veins: Unremarkable. Axillary and brachial veins are patent throughout without thrombus. Normal Doppler waveforms. Normal compressibility and/or augmentation response. Visualized internal jugular and subclavian veins are patent. Left superficial veins: The basilic vein is patent without thrombus. A patent left cephalic vein could not be identified. Soft tissues: There is a complex fluid collection with thick internal septations anteriorly at the right shoulder which measures 2.4 x 1.4 x 3.9 cm. This collection appears to be deep the subcutaneous tissues and may be probably intramuscular or between muscle planes. On color Doppler imaging, no significant associated hyperemia is seen. There is a small area of apparent blood flow in an internal septation on color Doppler imaging but no corresponding blood flow is seen on pulsed Doppler. IMPRESSION: 1. No evidence of deep venous in the bilateral upper extremity veins. 2. The left cephalic vein could not be identified. 3. Complex fluid collection anteriorly at the right shoulder, which may represent a hematoma. Abscess is not excluded, although no significant associated hyperemia is seen on color Doppler imaging. Please correlate with physical exam. Aspiration can be performed if clinically indicated. Electronically signed by: Charlene Castro On 03/19/2021 06:57:07 AM
[2021-03-19] MEDS ORDERED: CEPH500C PO (07:10)
[2021-03-19 07:15] VITALS: BP 138/89
--- NOTE | 2021-03-19 20:45 | ECGEPIP ---
[facility] - ED Test Date: 2021-03-19 Pat Name: DIANE SIMMONS Department: Room: - Gender: Male [employer]: [employer] : 1985 Requested By: BETHANY Sherwood Order Number: [id number] Reading MD: Umer Valente Measurements Intervals [place] Rate: 92 P: 56 [place]: 144 QRS: 48 QRSD: 70 T: 54 QT: 358 QTc: 442 Interpretive Statements Normal sinus rhythm SIMILAR TO 03/02/21 Electronically Signed on 03-19-2021 20:44:50 EDT by Umer Valente
== END 2021-03-19 07:27 | disposition home or self-care (01) ==
LOC: M ED 21:27
DX: R53.81 Other malaise (principal); M25.511 Pain in right shoulder; F15.10 Other stimulant abuse, uncomplicated; F17.210 Nicotine dependence, cigarettes, uncomplicated
CPT/HCPCS: 36415; 71045; 80048; 82550; 82553; 85025; 85049; 93005; 93041; 93970; 94760; 99285; Q9967

== ENCOUNTER 2021-04-01 03:11 | Emergency (ER) | payer OTHER ==
[~2021-04-01] VITALS: Ht 172.7 cm; Wt 68.2 kg
[~2021-04-01 03:11] MED LIST changes: +CEPH500C PO; -LISI10TA15 PO; +LISI10TA24 PO; +OMEP-173 PO; -OMEP-218 PO
[2021-04-01] MEDS ORDERED: NS 1,000 ML IV ONE (03:55)
[2021-04-01 04:33] LABS: BASO # 0.1 10^3/uL (0.0-0.2); BASO % 0.4 % (0.0-1.0); EOS % 0.2 % (0.0-3.0); HEMATOCRIT 41.3 % (42.0-52.0); LYMPH # 2.7 10^3/uL (1.5-5.0); LYMPH % 14.8 % (24.0-44.0); MEAN CORPUSCULAR HEMOGLOBIN 27.4 pg (27.0-33.0); MEAN CORPUSCULAR HGB CONC 31.5 g/dl (32.0-36.5); MEAN CORPUSCULAR VOLUME 86.9 fl (80.0-96.0); MONO # 1.2 10^3/uL (0.0-0.8); MONO % 6.4 % (2.0-8.0); NEUTROPHILS # 14.3 10^3/uL (1.5-8.5); NEUTROPHILS % 77.8 % (36.0-66.0); PLATELET COUNT, AUTOMATED 470 10^3/uL (150-450); RED BLOOD COUNT 4.75 10^6/uL (4.30-6.10); WHITE BLOOD COUNT 18.4 10^3/uL (4.0-10.0)
[2021-04-01 04:44] LABS: PARTIAL THROMBOPLASTIN TIME 30.3 SECONDS (24.2-38.5); PROTHROMBIN TIME 13.4 SECONDS (12.5-14.3)
[2021-04-01 04:59] LABS: ALBUMIN 3.1 GM/DL (3.2-5.2); ALT/SGPT 98 U/L (12-78); BILIRUBIN,DIRECT < 0.1 MG/DL (0.0-0.2); BILIRUBIN,TOTAL 0.2 MG/DL (0.2-1.0); CK-MB VALUE MASS < 1.0 NG/ML (<3.6); CPK CREATINE PHOSPHOKINASE 39 U/L (39-308); LIPASE 86 U/L (73-393); MB/CK RELATIVE INDEX 2.56 (< OR =4); TOTAL PROTEIN 9.2 GM/DL (6.4-8.2); TROPONIN I < 0.02 NG/ML (< 0.10)
[2021-04-01 05:05] LABS: AMPHETAMINES LEVEL URINE NEGATIVE (NEGATIVE); BARBITURATES URINE NEGATIVE (NEGATIVE); BENZODIAZEPINES URINE NEGATIVE (NEGATIVE); CANNABINOIDS URINE POSITIVE (NEGATIVE); COCAINE METABOLITE URINE NEGATIVE (NEGATIVE); METHADONE URINE NEGATIVE (NEGATIVE); OPIATES URINE NEGATIVE (NEGATIVE); PHENCYCLIDINE URINE NEGATIVE (NEGATIVE)
[2021-04-01] MEDS ORDERED: ACETAMINOPHEN 500 MG TAB PO ONE (07:00)
[2021-04-01] MEDS ORDERED: KETOROLAC 30 MG/ML 1ML VIAL IV ONE (07:00)
[2021-04-01 11:00] VITALS: BP 156/103
[2021-08-15] MEDS ORDERED: OMEP-173 PO (00:58)
== END 2021-04-01 11:11 | disposition home or self-care (01) ==
LOC: M ED 03:11 → EDBD 03:11 → M ED 11:11
DX: M25.511 Pain in right shoulder (principal); M25.512 Pain in left shoulder; D72.829 Elevated white blood cell count, unspecified; I10 Essential (primary) hypertension; K21.9 Gastro-esophageal reflux disease without esophagitis; B19.9 Unspecified viral hepatitis without hepatic coma; F15.20 Other stimulant dependence, uncomplicated; Z86.19 Personal history of other infectious and parasitic diseases; F17.210 Nicotine dependence, cigarettes, uncomplicated
CPT/HCPCS: 36415; 73030; 80047; 80076; 80307; 82550; 82553; 83605; 83690; 85025; 85610; 85730; 86140; 87040; 93041; 96361; 96374; 99285; J1885

== ENCOUNTER 2021-08-15 00:44 | Emergency (ER) | payer OTHER ==
[~2021-08-15] VITALS: Ht 175.3 cm; Wt 88.6 kg
[~2021-08-15 00:44] MED LIST changes: -OMEP-173 PO; +OMEP-218 PO
[2021-08-15] MEDS ORDERED: SERT-141 PO (00:58)
[2021-08-15] MEDS ORDERED: TIZA1TAB12 PO (00:58)
[2021-08-15] MEDS ORDERED: BUPR1SUB5 SL (00:58)
[2021-08-15] MEDS ORDERED: OMEP-218 PO (00:58)
[2021-08-15 01:36] LABS: HEMATOCRIT 32.6 % (42.0-52.0); HEMOGLOBIN 10.9 g/dl (13.5-17.5); MEAN CORPUSCULAR HEMOGLOBIN 27.6 pg (27.0-33.0); MEAN CORPUSCULAR HGB CONC 33.4 g/dl (32.0-36.5); MEAN CORPUSCULAR VOLUME 82.5 fl (80.0-96.0); PLATELET COUNT, AUTOMATED 327 10^3/uL (150-450); RED BLOOD COUNT 3.95 10^6/uL (4.30-6.10); WHITE BLOOD COUNT 8.5 10^3/uL (4.0-10.0)
[2021-08-15 02:07] LABS: ACETAMINOPHEN LEVEL < 2.0 UG/ML (10.0-30.0); ALBUMIN 3.8 GM/DL (3.2-5.2); ALT/SGPT 45 U/L (12-78); BILIRUBIN,DIRECT 0.1 MG/DL (0.0-0.2); BILIRUBIN,TOTAL 0.3 MG/DL (0.2-1.0); BLOOD UREA NITROGEN 12 MG/DL (7-18); CARBON DIOXIDE LEVEL 27 MEQ/L (21-32); CHLORIDE LEVEL 104 MEQ/L (98-107); CREATININE FOR GFR 0.67 MG/DL (0.70-1.30); ETHYL ALCOHOL (ETHANOL) < 0.003 % (0.000-0.010); GLOMERULAR FILTRATION RATE > 60.0 (>60); GLUCOSE, FASTING 118 MG/DL (70-100); POTASSIUM SERUM 3.6 MEQ/L (3.5-5.1); SALICYLATE LEVEL < 1.7 MG/DL (5.0-30.0); SODIUM LEVEL 138 MEQ/L (136-145); TOTAL PROTEIN 7.3 GM/DL (6.4-8.2)
[2021-08-15 03:21] LABS: RSV AMPLIFICATION NEGATIVE (NEGATIVE)
[2021-08-15 03:41] LABS: AMPHETAMINES LEVEL URINE NEGATIVE (NEGATIVE); BARBITURATES URINE NEGATIVE (NEGATIVE); BENZODIAZEPINES URINE NEGATIVE (NEGATIVE); CANNABINOIDS URINE NEGATIVE (NEGATIVE); COCAINE METABOLITE URINE NEGATIVE (NEGATIVE); METHADONE URINE NEGATIVE (NEGATIVE); OPIATES URINE POSITIVE (NEGATIVE); PHENCYCLIDINE URINE NEGATIVE (NEGATIVE)
[2021-08-15] MEDS: tiZANidine 4 MG TAB PO SCH ×3 (09:00→21:00)
[2021-08-15] MEDS ORDERED: tiZANidine 4 MG TAB PO SCH (09:00)
[2021-08-15] MEDS ORDERED: OMEPRAZOLE 20 MG CAP PO SCH (09:00)
[2021-08-15] MEDS: GABAPENTIN 300 MG CAP PO SCH ×3 (09:00→21:00)
[2021-08-15] MEDS ORDERED: TIZA10TA PO (09:18)
[2021-08-15] MEDS ORDERED: NEUR300C PO (09:19)
[2021-08-15] MEDS ORDERED: DOXY-350 PO (09:21)
[2021-08-15] MEDS ORDERED: OXYC-517 PO (09:21)
[2021-08-15] MEDS ORDERED: HOME MED LIST COMPLETE! XX SCH (09:25)
[2021-08-15] MEDS: SERTRALINE HCL 50 MG TAB PO SCH (11:00)
[2021-08-16] MEDS: GABAPENTIN 300 MG CAP PO SCH (09:00)
[2021-08-16] MEDS: tiZANidine 4 MG TAB PO SCH (09:00)
[2021-08-16] MEDS: SERTRALINE HCL 50 MG TAB PO SCH (09:00)
[2021-08-16 14:47] VITALS: BP 142/88
== END 2021-08-16 14:51 ==
LOC: M ED 00:44
DX: R45.851 Suicidal ideations (principal); F33.9 Major depressive disorder, recurrent, unspecified; Z79.899 Other long term (current) drug therapy; F17.210 Nicotine dependence, cigarettes, uncomplicated; F15.20 Other stimulant dependence, uncomplicated

== ENCOUNTER 2023-02-19 14:57 | Inpatient (IN) | payer OTHER ==
[~2023-02-19] VITALS: Ht 172.7 cm; Wt 68.2 kg
[~2023-02-19 14:57] MED LIST changes: +BUPR1SUB5 SL; +DOXY-444 PO; +NEUR300C PO; +OMEP-173 PO; -OMEP-218 PO; +OXYC-517 PO; +SERT-141 PO; +TIZA10TA PO; +TIZA1TAB12 PO
[2023-02-19] MEDS ORDERED: NS 1,000 ML IV ONE (15:55)
[2023-02-19 17:05] LABS: BASO % 0.2 % (0.0-1.0); EOS % 0.3 % (0.0-3.0); HEMATOCRIT 37.7 % (42.0-52.0); HEMOGLOBIN 12.5 g/dl (13.5-17.5); LYMPH # 2.8 10^3/uL (1.5-5.0); LYMPH % 21.4 % (24.0-44.0); MEAN CORPUSCULAR HEMOGLOBIN 27.1 pg (27.0-33.0); MEAN CORPUSCULAR HGB CONC 33.2 g/dl (32.0-36.5); MEAN CORPUSCULAR VOLUME 81.8 fl (80.0-96.0); MONO # 0.9 10^3/uL (0.0-0.8); MONO % 6.8 % (2.0-8.0); NEUTROPHILS # 9.1 10^3/uL (1.5-8.5); PLATELET COUNT, AUTOMATED 336 10^3/uL (150-450); RED BLOOD COUNT 4.61 10^6/uL (4.30-6.10); WHITE BLOOD COUNT 12.9 10^3/uL (4.0-10.0)
[2023-02-19 17:18] LABS: AMPHETAMINES LEVEL URINE NEGATIVE (NEGATIVE); BARBITURATES URINE NEGATIVE (NEGATIVE); BENZODIAZEPINES URINE NEGATIVE (NEGATIVE); COCAINE METABOLITE URINE NEGATIVE (NEGATIVE); METHADONE URINE NEGATIVE (NEGATIVE); OPIATES URINE NEGATIVE (NEGATIVE)
[2023-02-19 17:19] LABS: PHENCYCLIDINE URINE NEGATIVE (NEGATIVE)
[2023-02-19 17:20] LABS: CANNABINOIDS URINE POSITIVE (NEGATIVE)
[2023-02-19 17:21] LABS: ERYTHROCYTE SEDIMENTATION RATE 38 mm/hr (0-15); ETHYL ALCOHOL (ETHANOL) < 0.003 % (0.000-0.010)
[2023-02-19 17:22] LABS: ACETAMINOPHEN LEVEL < 2.0 UG/ML (10.0-20.0); CPK CREATINE PHOSPHOKINASE 24 U/L (46-171); SALICYLATE LEVEL < 3.0 MG/DL (<30)
[2023-02-19 17:23] LABS: ALBUMIN 3.2 G/DL (3.2-5.2); ALKALINE PHOSPHATASE 136 U/L (46-116); ALT/SGPT 23 U/L (7.0-40); AST/SGOT 8 U/L (<34); BILIRUBIN,DIRECT 0.1 MG/DL (<0.4); BILIRUBIN,TOTAL 0.3 MG/DL (0.3-1.2); BLOOD UREA NITROGEN 13 MG/DL (9-23); CARBON DIOXIDE LEVEL 26 MMOL/L (20-31); CHLORIDE LEVEL 106 MMOL/L (98-107); CREATININE FOR GFR 0.69 MG/DL (0.70-1.30); GLOMERULAR FILTRATION RATE > 60.0 (>60); GLUCOSE, FASTING 97 MG/DL (60-100); POTASSIUM SERUM 3.2 MMOL/L (3.5-5.1); SODIUM LEVEL 138 MMOL/L (136-145); TOTAL PROTEIN 6.3 G/DL (5.7-8.2)
[2023-02-19 17:24] LABS: THYROID STIMULATING HORMONE 0.705 uIU/ML (0.55-4.78)
[2023-02-19 17:25] LABS: RSV AMPLIFICATION NEGATIVE (NEGATIVE)
[2023-02-19 17:36] LABS: HEPATITIS B SURFACE ANTIGEN NEGATIVE (NEGATIVE)
[2023-02-19 17:58] LABS: HEPATITIS B CORE ANTIBODY IGM NEGATIVE (NEGATIVE)
[2023-02-19] MEDS ORDERED: PIPERACILLIN/TAZOBACTAM SOD 4.5 GM in D5W MINI-BAG PLUS 50 ML IV ONE (18:25)
[2023-02-19] MEDS ORDERED: cloNIDine 0.1MG TABLET PO ONE (18:30)
[2023-02-19] MEDS ORDERED: MORPHINE 4 MG/ML 1ML VIAL IV ONE (18:30)
[2023-02-19] MEDS ORDERED: ONDANSETRON 4MG 2ML VIAL IV ONE (18:30)
[2023-02-19] MEDS ORDERED: ZOLO100T PO (19:48)
[2023-02-19] MEDS ORDERED: OMEP-357 PO (19:48)
[2023-02-19] MEDS ORDERED: HOME MED LIST COMPLETE! XX SCH (19:50)
[2023-02-19] MEDS ORDERED: VANCOMYCIN HCL 750 MG, VIAL MATE ADAPTER 1 EACH in D5W 250 ML IV ONE ×2 (20:00→21:00)
[2023-02-19 20:14] LABS: HEPATITIS C VIRUS ABY INDEX > 11.00 INDEX (<0.8)
[2023-02-19 23:10] VITALS: BP 139/72; TEMP 98.2; O2SAT 93
[2023-02-20] VITALS (7 sets, daily range): BP systolic 126–150; BP diastolic 68–90; TEMP 97.9–99; O2SAT 92–98
[2023-02-20] MEDS ORDERED: POTASSIUM CHLORIDE 10MEQ SR TABLET PO ONE (01:00)
[2023-02-20] MEDS: VANCOMYCIN HCL 1,000 MG, VIAL MATE ADAPTER 1 EACH in NS 250 ML IV SCH ×3 (03:49→20:23)
[2023-02-20] MEDS: ONDANSETRON 4MG TAB PO PRN ×2 (05:56→12:48)
[2023-02-20] MEDS: ACETAMINOPHEN TAB 650MG DOSE (2X325MG) PO PRN ×2 (08:48→14:31)
[2023-02-20] MEDS: SERTRALINE 100 MG TAB PO SCH (08:48)
[2023-02-20] MEDS: OMEPRAZOLE 20MG CAP PO SCH (08:48)
[2023-02-20] MEDS: PIPERACILLIN/TAZOBACTAM SOD 3.375 GM in D5W MINI-BAG PLUS 50 ML IV SCH ×3 (08:48→20:24)
[2023-02-20] MEDS: ENOXAPARIN 40MG/0.4ML SYRINGE (J1650 PER 10MG) SC SCH (08:49)
[2023-02-20] MEDS: cloNIDine 0.1MG TABLET PO SCH ×2 (08:49→20:24)
[2023-02-20 10:19] LABS: HEMATOCRIT 42.3 % (42.0-52.0); HEMOGLOBIN 13.8 g/dl (13.5-17.5); MEAN CORPUSCULAR HGB CONC 32.6 g/dl (32.0-36.5); MEAN CORPUSCULAR VOLUME 82.8 fl (80.0-96.0); PLATELET COUNT, AUTOMATED 352 10^3/uL (150-450); RED BLOOD COUNT 5.11 10^6/uL (4.30-6.10); WHITE BLOOD COUNT 8.5 10^3/uL (4.0-10.0)
[2023-02-20 10:54] LABS: BLOOD UREA NITROGEN 9 MG/DL (9-23); CARBON DIOXIDE LEVEL 25 MMOL/L (20-31); CHLORIDE LEVEL 103 MMOL/L (98-107); CREATININE FOR GFR 0.64 MG/DL (0.70-1.30); GLOMERULAR FILTRATION RATE > 60.0 (>60); GLUCOSE, FASTING 174 MG/DL (60-100); POTASSIUM SERUM 3.5 MMOL/L (3.5-5.1); SODIUM LEVEL 139 MMOL/L (136-145)
[2023-02-20] MEDS: NICOTINE 21MG/24HR 1 EA TRANSDERMAL TD PRN (11:15)
[2023-02-20] MEDS ORDERED: MORPHINE 2 MG/ML 1ML VIAL IV ONE (14:45)
[2023-02-20] MEDS: METHADONE 5MG TAB PO SCH (23:31)
[2023-02-21] VITALS (7 sets, daily range): BP systolic 128–152; BP diastolic 70–90; TEMP 97.9–98.6; O2SAT 98
[2023-02-21] MEDS: PIPERACILLIN/TAZOBACTAM SOD 3.375 GM in D5W MINI-BAG PLUS 50 ML IV SCH ×4 (02:28→22:39)
[2023-02-21] MEDS: VANCOMYCIN HCL 1,000 MG, VIAL MATE ADAPTER 1 EACH in NS 250 ML IV SCH ×3 (03:54→20:38)
[2023-02-21 06:50] LABS: BASO % 0.4 % (0.0-1.0); EOS # 0.1 10^3/uL (0.0-0.5); EOS % 0.6 % (0.0-3.0); HEMATOCRIT 43.3 % (42.0-52.0); HEMOGLOBIN 13.9 g/dl (13.5-17.5); LYMPH # 2.2 10^3/uL (1.5-5.0); LYMPH % 28.3 % (24.0-44.0); MEAN CORPUSCULAR HEMOGLOBIN 26.9 pg (27.0-33.0); MEAN CORPUSCULAR HGB CONC 32.1 g/dl (32.0-36.5); MEAN CORPUSCULAR VOLUME 83.9 fl (80.0-96.0); MONO # 0.7 10^3/uL (0.0-0.8); MONO % 9.2 % (2.0-8.0); NEUTROPHILS # 4.7 10^3/uL (1.5-8.5); NEUTROPHILS % 61.1 % (36.0-66.0); PLATELET COUNT, AUTOMATED 318 10^3/uL (150-450); RED BLOOD COUNT 5.16 10^6/uL (4.30-6.10); WHITE BLOOD COUNT 7.8 10^3/uL (4.0-10.0)
[2023-02-21 07:15] LABS: BLOOD UREA NITROGEN 9 MG/DL (9-23); CALCIUM LEVEL 8.7 MG/DL (8.5-10.1); CARBON DIOXIDE LEVEL 27 MMOL/L (20-31); CHLORIDE LEVEL 105 MMOL/L (98-107); CREATININE FOR GFR 0.74 MG/DL (0.70-1.30); GLOMERULAR FILTRATION RATE > 60.0 (>60); GLUCOSE, FASTING 94 MG/DL (60-100); POTASSIUM SERUM 4.1 MMOL/L (3.5-5.1); SODIUM LEVEL 140 MMOL/L (136-145)
[2023-02-21] MEDS: cloNIDine 0.1MG TABLET PO SCH ×2 (08:20→20:39)
[2023-02-21] MEDS: OMEPRAZOLE 20MG CAP PO SCH (08:20)
[2023-02-21] MEDS: METHADONE 5MG TAB PO SCH ×3 (08:20→20:39)
[2023-02-21] MEDS: SERTRALINE 100 MG TAB PO SCH (08:20)
[2023-02-21] MEDS: ENOXAPARIN 40MG/0.4ML SYRINGE (J1650 PER 10MG) SC SCH (08:21)
[2023-02-21] MEDS: NICOTINE 21MG/24HR 1 EA TRANSDERMAL TD PRN (12:13)
[2023-02-21] MEDS: ACETAMINOPHEN TAB 650MG DOSE (2X325MG) PO PRN (15:17)
[2023-02-22 01:46] VITALS: BP 136/68; TEMP 97.9; O2SAT 97
[2023-02-22] MEDS: PIPERACILLIN/TAZOBACTAM SOD 3.375 GM in D5W MINI-BAG PLUS 50 ML IV SCH ×3 (02:08→08:13)
[2023-02-22] MEDS: VANCOMYCIN HCL 1,000 MG, VIAL MATE ADAPTER 1 EACH in NS 250 ML IV SCH (04:22)
[2023-02-22 05:21] VITALS: BP 142/70; TEMP 97.9; O2SAT 98
[2023-02-22] MEDS: ENOXAPARIN 40MG/0.4ML SYRINGE (J1650 PER 10MG) SC SCH (08:13)
[2023-02-22] MEDS: SERTRALINE 100 MG TAB PO SCH (08:13)
[2023-02-22] MEDS: cloNIDine 0.1MG TABLET PO SCH ×2 (08:13→20:49)
[2023-02-22] MEDS: METHADONE 5MG TAB PO SCH ×3 (08:13→20:49)
[2023-02-22] MEDS: OMEPRAZOLE 20MG CAP PO SCH (08:13)
[2023-02-22 10:00] VITALS: BP 132/76; TEMP 99.3; O2SAT 98
[2023-02-22] MEDS: NICOTINE 21MG/24HR 1 EA TRANSDERMAL TD PRN (10:04)
[2023-02-22 11:29] LABS: BASO # 0.1 10^3/uL (0.0-0.2); BASO % 0.6 % (0.0-1.0); EOS # 0.1 10^3/uL (0.0-0.5); EOS % 0.8 % (0.0-3.0); HEMATOCRIT 44.2 % (42.0-52.0); HEMOGLOBIN 13.9 g/dl (13.5-17.5); LYMPH # 2.2 10^3/uL (1.5-5.0); LYMPH % 28.9 % (24.0-44.0); MEAN CORPUSCULAR HEMOGLOBIN 26.6 pg (27.0-33.0); MEAN CORPUSCULAR HGB CONC 31.4 g/dl (32.0-36.5); MEAN CORPUSCULAR VOLUME 84.5 fl (80.0-96.0); MONO # 0.6 10^3/uL (0.0-0.8); NEUTROPHILS # 4.7 10^3/uL (1.5-8.5); NEUTROPHILS % 61.4 % (36.0-66.0); PLATELET COUNT, AUTOMATED 321 10^3/uL (150-450); RED BLOOD COUNT 5.23 10^6/uL (4.30-6.10); WHITE BLOOD COUNT 7.7 10^3/uL (4.0-10.0)
[2023-02-22 11:52] LABS: BLOOD UREA NITROGEN 10 MG/DL (9-23); CALCIUM LEVEL 9.3 MG/DL (8.5-10.1); CARBON DIOXIDE LEVEL 25 MMOL/L (20-31); CHLORIDE LEVEL 106 MMOL/L (98-107); CREATININE FOR GFR 0.68 MG/DL (0.70-1.30); GLOMERULAR FILTRATION RATE > 60.0 (>60); GLUCOSE, FASTING 97 MG/DL (60-100); MAGNESIUM LEVEL 1.8 MG/DL (1.8-2.4); POTASSIUM SERUM 4.4 MMOL/L (3.5-5.1); SODIUM LEVEL 140 MMOL/L (136-145)
[2023-02-22] MEDS: DOXYCYCLINE HYCLATE 100MG TABLET PO SCH ×2 (12:11→20:48)
[2023-02-22 15:00] VITALS: BP 140/78; TEMP 98.6; O2SAT 98
[2023-02-22] MEDS: ACETAMINOPHEN TAB 650MG DOSE (2X325MG) PO PRN (15:41)
[2023-02-22 18:00] VITALS: BP 146/90; TEMP 97.9; O2SAT 98
[2023-02-22 20:45] VITALS: BP 142/80; TEMP 97.3; O2SAT 98
[2023-02-23 02:29] VITALS: BP 118/62; TEMP 97.9; O2SAT 98
[2023-02-23 06:08] VITALS: BP 132/80; TEMP 97.9; O2SAT 99
[2023-02-23] MEDS: METHADONE 5MG TAB PO SCH ×3 (08:21→20:22)
[2023-02-23] MEDS: SERTRALINE 100 MG TAB PO SCH (08:21)
[2023-02-23] MEDS: DOXYCYCLINE HYCLATE 100MG TABLET PO SCH ×2 (08:22→20:22)
[2023-02-23] MEDS: ENOXAPARIN 40MG/0.4ML SYRINGE (J1650 PER 10MG) SC SCH ×2 (08:22→08:23)
[2023-02-23] MEDS: cloNIDine 0.1MG TABLET PO SCH ×2 (08:22→20:22)
[2023-02-23] MEDS: OMEPRAZOLE 20MG CAP PO SCH (08:22)
[2023-02-23] MEDS: NICOTINE 21MG/24HR 1 EA TRANSDERMAL TD PRN (13:45)
[2023-02-23 14:00] VITALS: BP 115/60; TEMP 97.9; O2SAT 99
[2023-02-23] MEDS ORDERED: CLONI1TA PO (14:54)
[2023-02-23] MEDS ORDERED: DOXY100T PO (14:54)
[2023-02-23] MEDS ORDERED: METH5TA PO (14:54)
[2023-02-23 20:22] VITALS: BP 118/60
[2023-02-23 20:38] VITALS: TEMP 97.3; O2SAT 100
== END 2023-02-23 21:00 | DRG 383 ==
LOC: M ED 14:57 → M ED INP 19:14 → ENRESERV 21:19 → M MSPAV 23:13
PROVIDERS: ADMIT Internal Medicine; ATTEND Internal Medicine
PROC: B246ZZZ Ultrasonography of Right and Left Heart (ICD-10-PCS; principal; 2023-02-21)
DX: L08.89 Other specified local infections of the skin and subcutaneous tissue (principal); R45.851 Suicidal ideations; F11.23 Opioid dependence with withdrawal; F32.89 Other specified depressive episodes; F12.10 Cannabis abuse, uncomplicated; I10 Essential (primary) hypertension; F32.A Depression, unspecified; F43.10 Post-traumatic stress disorder, unspecified; K21.9 Gastro-esophageal reflux disease without esophagitis; Z87.820 Personal history of traumatic brain injury; Z98.1 Arthrodesis status; Z91.51 Personal history of suicidal behavior; Z79.899 Other long term (current) drug therapy; M79.89 Other specified soft tissue disorders; B19.20 Unspecified viral hepatitis C without hepatic coma; D72.829 Elevated white blood cell count, unspecified

== ENCOUNTER 2023-02-23 17:13 | Inpatient (IN) | payer OTHER ==
[~2023-02-23] VITALS: Ht 175.3 cm; Wt 77.0 kg
[~2023-02-23 17:13] MED LIST changes: +CLONI1TA PO; +DOXY100T PO; +METH5TA PO; +OMEP-357 PO; +ZOLO100T PO
[2023-02-23] MEDS ORDERED: ACETAMINOPHEN TAB 650MG DOSE (2X325MG) PO PRN (17:30)
[2023-02-23] MEDS ORDERED: IBUPROFEN 400MG TAB PO PRN (17:30)
[2023-02-23] MEDS ORDERED: MOM 30ML SUSPENSION UDC PO PRN (17:30)
[2023-02-23] MEDS ORDERED: MAALOX 30 ML SUSP *UDC PO PRN (17:30)
[2023-02-23] MEDS ORDERED: diphenhydrAMINE 25MG CAP PO PRN (17:30)
[2023-02-23 22:01] VITALS: BP 140/90; TEMP 97.5; O2SAT 99
[2023-02-23] MEDS: OMEPRAZOLE 20MG CAP PO SCH (22:01)
[2023-02-23] MEDS: cloNIDine 0.1MG TABLET PO SCH (22:05)
[2023-02-23] MEDS: traZODone 50 MG TAB PO PRN (22:23)
[2023-02-24 06:52] VITALS: BP 125/73; TEMP 96.9; O2SAT 100
[2023-02-24] MEDS ORDERED: METHADONE 5MG TAB PO SCH (09:00)
[2023-02-24] MEDS: NICOTINE 21MG/24HR 1 EA TRANSDERMAL TD SCH (09:27)
[2023-02-24] MEDS: SERTRALINE 100 MG TAB PO SCH (09:28)
[2023-02-24] MEDS: DOXYCYCLINE HYCLATE 100MG TABLET PO SCH ×2 (09:28→20:41)
[2023-02-24] MEDS: cloNIDine 0.1MG TABLET PO SCH ×2 (09:28→20:41)
[2023-02-24 16:49] VITALS: BP 102/64; TEMP 97.9; O2SAT 99
[2023-02-24] MEDS ORDERED: METHADONE 5MG TAB PO ONE (17:50)
[2023-02-24] MEDS: OMEPRAZOLE 20MG CAP PO SCH (20:40)
[2023-02-24] MEDS: traZODone 50 MG TAB PO PRN (20:40)
[2023-02-25 06:17] VITALS: BP 128/69; TEMP 97.8; O2SAT 100
[2023-02-25] MEDS ORDERED: METHADONE 5MG TAB PO SCH (09:00)
[2023-02-25] MEDS: NICOTINE 21MG/24HR 1 EA TRANSDERMAL TD SCH (09:39)
[2023-02-25] MEDS: DOXYCYCLINE HYCLATE 100MG TABLET PO SCH ×2 (09:39→20:38)
[2023-02-25] MEDS: SERTRALINE 100 MG TAB PO SCH (09:39)
[2023-02-25 09:41] VITALS: BP 140/83
[2023-02-25] MEDS: cloNIDine 0.1MG TABLET PO SCH ×2 (09:41→20:39)
[2023-02-25] MEDS: METHADONE 5MG TAB PO SCH ×2 (15:36→20:38)
[2023-02-25 18:56] VITALS: BP 113/60; TEMP 99.2
[2023-02-25] MEDS: OMEPRAZOLE 20MG CAP PO SCH (20:39)
[2023-02-25] MEDS: traZODone 50 MG TAB PO PRN (20:39)
[2023-02-26 06:17] VITALS: BP 100/56; TEMP 98; O2SAT 98
[2023-02-26 08:27] VITALS: BP 150/82
[2023-02-26] MEDS: METHADONE 5MG TAB PO SCH ×3 (08:28→20:13)
[2023-02-26] MEDS: SERTRALINE 100 MG TAB PO SCH (08:28)
[2023-02-26] MEDS: cloNIDine 0.1MG TABLET PO SCH ×2 (08:28→20:13)
[2023-02-26] MEDS: DOXYCYCLINE HYCLATE 100MG TABLET PO SCH ×2 (08:28→20:13)
[2023-02-26] MEDS: NICOTINE 21MG/24HR 1 EA TRANSDERMAL TD SCH (08:29)
[2023-02-26 18:00] VITALS: BP 111/82; TEMP 97.8
[2023-02-26] MEDS: traZODone 50 MG TAB PO PRN (20:13)
[2023-02-26] MEDS: OMEPRAZOLE 20MG CAP PO SCH (20:13)
[2023-02-27 07:10] VITALS: BP 99/58; TEMP 97.5; O2SAT 98
[2023-02-27] MEDS: NICOTINE 21MG/24HR 1 EA TRANSDERMAL TD SCH (07:48)
[2023-02-27] MEDS: SERTRALINE 100 MG TAB PO SCH (07:49)
[2023-02-27] MEDS: METHADONE 5MG TAB PO SCH ×3 (07:49→20:16)
[2023-02-27] MEDS: cloNIDine 0.1MG TABLET PO SCH ×2 (07:49→20:19)
[2023-02-27] MEDS ORDERED: traZODone 100 MG TAB PO PRN (14:50)
[2023-02-27 16:00] VITALS: BP 110/60; TEMP 98.9; O2SAT 98
[2023-02-27] MEDS: OMEPRAZOLE 20MG CAP PO SCH (20:17)
[2023-02-28 07:00] VITALS: BP 128/63; TEMP 98; O2SAT 96
[2023-02-28] MEDS: METHADONE 5MG TAB PO SCH ×3 (07:24→20:31)
[2023-02-28] MEDS: cloNIDine 0.1MG TABLET PO SCH ×2 (07:24→20:31)
[2023-02-28] MEDS: SERTRALINE 100 MG TAB PO SCH (07:24)
[2023-02-28] MEDS: NICOTINE 21MG/24HR 1 EA TRANSDERMAL TD SCH (07:25)
[2023-02-28 17:02] VITALS: BP 124/72; TEMP 98.3; O2SAT 96
[2023-02-28] MEDS: traZODone 50 MG TAB PO PRN (20:27)
[2023-02-28] MEDS: OMEPRAZOLE 20MG CAP PO SCH (20:31)
[2023-03-01 06:45] VITALS: BP 128/74; TEMP 97.8; O2SAT 97
[2023-03-01 07:45] VITALS: BP 120/76
[2023-03-01] MEDS: SERTRALINE 100 MG TAB PO SCH (07:48)
[2023-03-01] MEDS: cloNIDine 0.1MG TABLET PO SCH ×2 (07:48→20:37)
[2023-03-01] MEDS: METHADONE 5MG TAB PO SCH ×3 (07:49→20:36)
[2023-03-01] MEDS: NICOTINE 21MG/24HR 1 EA TRANSDERMAL TD SCH (07:50)
[2023-03-01 18:00] VITALS: BP 128/86; TEMP 97
[2023-03-01] MEDS: OMEPRAZOLE 20MG CAP PO SCH (20:36)
[2023-03-01] MEDS: traZODone 50 MG TAB PO PRN (21:20)
[2023-03-02 05:57] VITALS: BP 121/74; TEMP 97.6; O2SAT 98
[2023-03-02] MEDS: SERTRALINE 100 MG TAB PO SCH (07:44)
[2023-03-02 07:45] VITALS: BP 121/74
[2023-03-02] MEDS: cloNIDine 0.1MG TABLET PO SCH (07:45)
[2023-03-02] MEDS: METHADONE 5MG TAB PO SCH (07:45)
[2023-03-02] MEDS: NICOTINE 21MG/24HR 1 EA TRANSDERMAL TD SCH (07:46)
[2023-03-02] MEDS ORDERED: TRAZ-252 PO (08:44)
[2023-03-02] MEDS ORDERED: ABIL1TAB11 PO (08:44)
== END 2023-03-02 10:15 | disposition home or self-care (01) | DRG 881 ==
LOC: M PSY 21:28
PROVIDERS: ADMIT Student in an Organized Health Care Education/Training Program; ATTEND Student in an Organized Health Care Education/Training Program
DX: F32.9 Major depressive disorder, single episode, unspecified (principal); F11.20 Opioid dependence, uncomplicated; F43.10 Post-traumatic stress disorder, unspecified; Z87.820 Personal history of traumatic brain injury; Z91.82 Personal history of military deployment; Z79.899 Other long term (current) drug therapy; I10 Essential (primary) hypertension; K21.9 Gastro-esophageal reflux disease without esophagitis; B19.20 Unspecified viral hepatitis C without hepatic coma; Z98.1 Arthrodesis status

== ENCOUNTER 2024-07-20 10:37 | Emergency (ER) | payer OTHER ==
[~2024-07-20] VITALS: Ht 172.7 cm; Wt 108.6 kg
[~2024-07-20 10:37] MED LIST changes: +ABIL1TAB11 PO; +DOXY-440 PO; -DOXY-444 PO
[2024-07-20] MEDS ORDERED: BUPR1SUB5 SL (10:56)
[2024-07-20] MEDS: IBUPROFEN 600MG TAB PO ONE (14:40)
[2024-07-20] MEDS ORDERED: IBUP-1022 PO (15:20)
[2024-07-20] MEDS ORDERED: BACT800T5 PO (15:20)
[2024-07-20 15:30] VITALS: BP 180/94; TEMP 97.7; O2SAT 98
== END 2024-07-20 15:35 | disposition home or self-care (01) ==
LOC: M ED 10:37
DX: L03.111 Cellulitis of right axilla (principal); I10 Essential (primary) hypertension; F43.10 Post-traumatic stress disorder, unspecified; F17.210 Nicotine dependence, cigarettes, uncomplicated; F12.10 Cannabis abuse, uncomplicated; Z79.1 Long term (current) use of non-steroidal anti-inflammatories (NSAID); Z79.899 Other long term (current) drug therapy